=== PATIENT | male | born 1980 | race Caucasian/White ===

== ENCOUNTER 2017-11-15 09:28 | Emergency (ER) | payer SELFPAY ==
[~2017-11-15] VITALS: Ht 172.7 cm; Wt 72.6 kg
--- NOTE | 2017-11-15 09:30 | NUR ---
aaox3, came to er c/o r shoulder pain s/p slipped and fell, -ko. rr is even and unlabored with nad noted. [facility] wnl. awaiting md for eval.
[2017-11-15] MEDS ORDERED: TDAP [DIPH/PERTUSSIS/TET] 0.5 ML VIAL IM ONE ×2 (09:39→10:00)
[2017-11-15] MEDS ORDERED: ONDANSETRON HCL/PF 4 MG/2 ML VIAL ONE ×2 (10:00→10:58)
[2017-11-15] MEDS ORDERED: ONDANSETRON HCL/PF 4 MG/2 ML VIAL IVP ONE ×2 (10:00→11:00)
[2017-11-15] MEDS ORDERED: HYDROMORPHONE INJ 2 MG/ML DISP.SYRIN IV ONE (10:00)
[2017-11-15] MEDS ORDERED: FENTANYL PF 100MCG/2ML AMPUL IV ONE (10:00)
[2017-11-15] MEDS ORDERED: MIDAZOLAM HCL 2 MG/2ML VIAL IV ONE (10:00)
[2017-11-15] MEDS ORDERED: HYDROMORPHONE INJ 2 MG/ML DISP.SYRIN ONE (10:00)
[2017-11-15] MEDS ORDERED: MIDAZOLAM HCL 5 MG/5ML VIAL ONE (10:03)
[2017-11-15] MEDS ORDERED: FENTANYL PF 100MCG/2ML AMPUL ONE (10:03)
--- NOTE | 2017-11-15 10:29 | NUR ---
xray at bs post r shoulder close reduction
[2017-11-15 11:12] VITALS: BP 124/76
--- NOTE | 2017-11-15 11:13 | NUR ---
Patient discharged to home in stable condition. Written and verbal after care instructions given. Patient verbalizes understanding of instruction.IV removed. Catheter intact and site benign. Pressure and 4x4 applied to site. No bleeding noted.
== END 2017-11-15 11:22 | disposition home or self-care (01) ==
LOC: ER 09:29
DX: S43.014A Anterior dislocation of right humerus, initial encounter (principal); K21.9 Gastro-esophageal reflux disease without esophagitis; W01.0XXA Fall on same level from slipping, tripping and stumbling without subsequent striking against object, initial encounter; Y93.01 Activity, walking, marching and hiking; Y92.89 Other specified places as the place of occurrence of the external cause; Y99.8 Other external cause status
CPT/HCPCS: 23650; 73030 ×2; 90471; 90715; 96374; 96375; 96376; 99152; 99285; A4606; J1170; J2250; J2405 ×2; J3010; Z7610

== ENCOUNTER 2017-12-14 08:58 | Emergency (ER) | payer SELFPAY ==
[~2017-12-14] VITALS: Ht 172.7 cm; Wt 73.5 kg
--- NOTE | 2017-12-14 09:00 | NUR ---
PRESENT TO ER C/O DISLOCATED RIGHT SHOULDER AFTER TURNING OVER AT 0400 WHILE SLEEPING. A/OX 4, BREATHING EVEN AND UNLABORED. NO SOB, NAD, VITALS STABLE. SAFETY AND COMFORT MEASURES IN PLACE. AWAITING MD ORDERS.
[2017-12-14] MEDS ORDERED: KETOROLAC TROMETHAMINE INJ 30 MG/ML VIAL ONE (09:15)
[2017-12-14] MEDS ORDERED: KETOROLAC TROMETHAMINE INJ 30 MG/ML VIAL IV ONE (09:30)
[2017-12-14] MEDS ORDERED: PROPOFOL 200 MG/20 ML VIAL IV ONE (09:30)
[2017-12-14] MEDS ORDERED: PROPOFOL 20 ML IV ONE (09:41)
--- NOTE | 2017-12-14 09:57 | NUR ---
DR. BEE AT BEDSIDE FOR RIGHT SHOULDER REDUCTION WITH MODERATE SEDATION. PATIENT INFORMED, CONSENT SIGNED. PROCEDURE SUCCESSFUL. RIGHT SHOULDER SLING APPLIED. WILL CONTINUE TO MONITOR.
--- NOTE | 2017-12-14 10:05 | NUR ---
[employer] AT BEDSIDE POST REDUCTION.
[2017-12-14 11:26] VITALS: BP 125/77
--- NOTE | 2017-12-14 11:27 | NUR ---
IV removed. Catheter intact and site benign. Pressure and 4x4 applied to site. No bleeding noted. Patient discharged to home in stable condition. Written and verbal after care instructions given. Patient verbalizes understanding of instruction.
== END 2017-12-14 11:27 | disposition home or self-care (01) ==
LOC: ER 08:59
DX: S43.084A Other dislocation of right shoulder joint, initial encounter (principal); K21.9 Gastro-esophageal reflux disease without esophagitis; X58.XXXA Exposure to other specified factors, initial encounter; Y93.84 Activity, sleeping; Y92.89 Other specified places as the place of occurrence of the external cause; Y99.8 Other external cause status
CPT/HCPCS: 23650; 73030 ×2; 96374; 99285; A4606; J1885; J2704; Z7610

== ENCOUNTER 2020-10-14 18:14 | Emergency (ER) | payer OTHER ==
[~2020-10-14] VITALS: Ht 170.2 cm; Wt 72.6 kg
--- NOTE | 2020-10-14 18:55 | NUR ---
PT AMBULATORY TO ER BED 10 C/O R SHOULDER PAIN. OBVIOUS DISLOCATION NOTED. PT STATES MULTIPLE DISLOCATION. STABLE VITALS. PT WAS EXERCISING USING AN ELASTIC BAND WHEN IT SNAPPED. AWAITING MD MARIA.
[2020-10-14] MEDS ORDERED: FENTANYL PF 100MCG/2ML AMPUL ONE (19:02)
--- NOTE | 2020-10-14 19:10 | NUR ---
PT MEDICATED ORDERED. SEE EMAR.
--- NOTE | 2020-10-14 19:19 | NUR ---
DR CAMPBELL BACK AT BEDSIDE FOR R SHOULDER REDUCTION.
--- NOTE | 2020-10-14 19:21 | NUR ---
RADIOLOGY AT BEDSIDE FOR R SHOULDER X RAY POST REDUCTION.
[2020-10-14] MEDS ORDERED: NAPR-1009 PO (19:28)
[2020-10-14] MEDS ORDERED: FENTANYL PF 100MCG/2ML AMPUL IM ONE (19:30)
[2020-10-14 19:42] VITALS: BP 123/76
== END 2020-10-14 19:43 | disposition home or self-care (01) ==
LOC: ER 18:15
DX: S43.084A Other dislocation of right shoulder joint, initial encounter (principal); K21.9 Gastro-esophageal reflux disease without esophagitis; X58.XXXA Exposure to other specified factors, initial encounter; Y93.89 Activity, other specified; Y92.89 Other specified places as the place of occurrence of the external cause; Y99.8 Other external cause status
CPT/HCPCS: 23650; 73030; 99284; J3010